=== PATIENT | male | born 1995 | race Caucasian/White ===

== ENCOUNTER 2023-04-17 01:01 | Observation (INO) | payer OTHER, MEDICAID, SELFPAY ==
[2023-04-17] VITALS (10 sets, daily range): BP systolic 108–160; BP diastolic 45–77; PULSE 55–116; RESP 16–18; TEMP 36.3–36.9; O2SAT 95–99; BMI 19.6; BMI 19.3
--- NOTE | 2023-04-17 01:17 | DI.CT.S_ITS ---
PROCEDURE: CT ABDOMEN PELVIS W CON INDICATIONS: RLQ abd pain TECHNIQUE: After the administration of intravenous contrast, axial sections acquired from the lung bases to the pubic symphysis. Coronal and sagittal reformats were performed. For radiation dose reduction, the following was used: automated exposure control, adjustment of mA and/or kV according to patient size. COMPARISON: None. FINDINGS: Image quality: Excellent. Lung bases: Unremarkable. Heart: No significant findings. ABDOMEN: Liver: Unremarkable. Gallbladder: Unremarkable. Biliary ducts: Unremarkable. Pancreas: Unremarkable. Spleen: Unremarkable. Adrenal Glands: Unremarkable. Kidneys and Ureters: Unremarkable. Stomach and Bowel: Appendix is mildly dilated and fluid-filled measuring up to 8 mm in diameter in the right lower quadrant. No appendicolith is seen. There is mild adjacent periappendiceal fat stranding. No adjacent free fluid or pneumoperitoneum is seen. Small bowel loops and stomach are unremarkable. Peritoneum: No abnormal intraperitoneal fluid. No free air. Ventral Wall: No hernias. Abdominal Nodes: No retroperitoneal or mesenteric adenopathy by size criteria. Vessels: Aorta and inferior vena cava are normal in size. PELVIS: Pelvic Organs: Unremarkable. Bladder: Unremarkable. Pelvic Nodes: No enlarged lymph nodes. Miscellaneous: No hernias are seen. Bones: Unremarkable. IMPRESSION: Acute appendicitis. Findings were discussed with the referring physician by telephone on 04/17/2023 at 2:29 AM. Approved by: Dayton Harris M.D. on 04/17/2023 at 2:29
--- NOTE | 2023-04-17 01:17 | ED_ITS ---
HPI - General Adult General Chief complaint: Abdominal Pain Stated complaint: abd pain Time Seen by Provider: 04/17/23 01:13 Source: patient Mode of arrival: Ambulatory Limitations: no limitations History of Present Illness HPI narrative: Patient is a 27-year-old male who is here for evaluation of approximately 12 hours of right lower quadrant abdominal pain. No fevers. Is having nausea. No urinary symptoms. Is having some diarrhea. No prior abdominal surgeries has not tried anything for symptoms prior to arrival. Related Data Home Medications Medication Instructions Recorded Confirmed bupropion HCl 150 mg 24 hr tablet, 30 mg PO BID 04/17/23 04/17/23 extended release Allergies Allergy/AdvReac Type Severity Reaction Status Date / Time No Known Drug Allergies Allergy Verified 04/17/23 01:14 Review of Systems Constitutional Constitutional: Reports system reviewed and no additional complaints, except as documented Respiratory Respiratory: Reports system reviewed and no additional complaints, except as documented Gastrointestinal Gastrointestinal: Reports system reviewed and no additional complaints, except as documented Genitourinary Genitourinary: Reports system reviewed and no additional complaints, except as documented Integumentary/Breasts Skin/Breast: Reports system reviewed and no additional complaints, except as documented Hematologic/Lymphatic On Anticoagulants: No Patient History Social History Smoking Status: Current every day smoker Smoking Status: Current every day smoker tobacco type: cigarettes and vaping alcohol intake frequency: 0-2 drinks per day Substance Use Type: marijuana Exam Initial Vital Signs Initial Vital Signs: Vital Signs Temperature 97.7 F 04/17/23 01:11 Pulse Rate 80 04/17/23 01:11 Respiratory Rate 16 04/17/23 01:11 Blood Pressure 160/66 H 04/17/23 01:11 Pulse Oximetry 95 04/17/23 01:11 Oxygen Delivery Method Room Air 04/17/23 01:11 Const General: cooperative, comfortable and No ill appearing HENMT Head: normal to inspection and normocephalic Resp Effort & Inspection: normal respiratory effort Auscultation: clear to auscultation bilaterally Cardio Rate: regular rate Rhythm: regular rhythm GI Inspection: normal to inspection and non-distended Palpation: soft and tender (Right lower quadrant) Skin General: no rashes or lesions noted Extrem General: normal to inspection Course Orders Ordered: ED Orders 04/17/23 01:15 Complete Blood Count AUTO DIFF Stat Comprehensive Metabolic Panel Stat Lipase Stat 04/17/23 01:17 CT abdomen pelvis w con Stat 04/17/23 02:33 Consult to General Surgery Stat Hydromorphone HCl (Hydromorphone 0.5 Mg Inj) 0.5 mg IV Q2H PRN PRN Reason: Pain, Severe (7-10) Sodium Chloride (Normal Saline 0.9%) 1,000 mls @ 125 mls/hr IV CONT MARQUES Last Admin: 04/17/23 03:30 Dose: 125 mls/hr Documented By: SHERRELL Ondansetron HCl (Ondansetron 4 Mg/2 Ml Inj) 4 mg IV Q4HR PRN PRN Reason: Nausea And Vomiting Discontinued Medications Sodium Chloride (Normal Saline 0.9%) 1,000 mls @ 1,000 mls/hr IV BOLUS ONE Stop: 04/17/23 02:15 Last Infusion: 04/17/23 02:16 Dose: 0 mls/hr Documented By: Admin: 04/17/23 01:20 Dose: 1,000 mls/hr Documented By: CHARAN Piperacillin Sod/Tazobactam (Sod 4.5 gm/ Sodium Chloride) 100 mls @ 200 mls/hr IV NOW ONE Stop: 04/17/23 02:33 Last Admin: 04/17/23 03:30 Dose: 200 mls/hr Documented By: SHERRELL Ondansetron HCl (Ondansetron 4 Mg/2 Ml Inj) 4 mg IV NOW ONE Stop: 04/17/23 01:15 Last Admin: 04/17/23 01:18 Dose: 4 mg Documented By: Vital Signs Vital signs: Vital Signs - 8 hr 04/17/23 01:11 04/17/23 01:16 04/17/23 01:16 Temperature 97.7 F Pulse Rate 80 116 H Respiratory Rate 16 Blood Pressure 160/66 H 156/75 H Pulse Oximetry 95 96 Oxygen Delivery Method Room Air 04/17/23 01:17 04/17/23 01:30 04/17/23 01:50 Temperature Pulse Rate 92 H Respiratory Rate Blood Pressure 114/67 114/76 Pulse Oximetry 97 Oxygen Delivery Method 04/17/23 01:50 04/17/23 02:00 04/17/23 02:00 Temperature Pulse Rate 76 61 Respiratory Rate Blood Pressure 109/69 Pulse Oximetry 99 99 Oxygen Delivery Method 04/17/23 02:19 04/17/23 02:30 Temperature Pulse Rate 66 Respiratory Rate Blood Pressure 108/70 Pulse Oximetry 99 Oxygen Delivery Method Medical Decision Making Lab Data Lab results reviewed: Yes I reviewed the patient's lab results. 04/17/23 01:15 04/17/23 01:15 Labs: Lab Results 04/17/23 04/17/23 Range/Units 01:15 01:15 WBC 9.8 (4.5-11.0) X10^3/uL RBC 5.72 (4.5-5.9) X10^6/uL Hgb 15.9 (13.5-17.5) g/dL Hct 48.3 (41-53) % MCV 84.5 (80-100) fL MCH 27.8 (26-34) PG MCHC 33.0 (30-36) % RDW 14.7 (11.6-14.8) % Plt Count 231 (150-400) X10^3/uL Neut % (Auto) 73.9 (50-75) % Lymph % (Auto) 13.2 L (25-40) % [place] % (Auto) 7.0 (3-14) % Eos % (Auto) 5.6 H (2-4) % Baso % (Auto) 0.3 (0-2) % Neut # (Auto) 7200 H (0032-9962) /uL Lymph # (Auto) 1300 (8060-0585) /uL [place] # (Auto) 700 (0-900) /uL Eos # (Auto) 600 H (0-450) /uL Baso # (Auto) 0 (0-100) /uL Sodium 139 (137-145) mmol/L Potassium 3.9 (3.4-5.1) mmol/L Chloride 103 (98-107) mmol/L Carbon Dioxide 22 (22-32) mmol/L BUN 13 (9-20) mg/dL Creatinine 0.94 (0.66-1.25) mg/dL Estimated GFR > 60 (>60) mL/min BUN/Creatinine Ratio 13.8 (6-22) Glucose 108 H (70-100) mg/dL Calcium 10.0 (8.4-10.2) mg/dL Total Bilirubin 1.3 (0.2-1.3) mg/dL AST 29 (17-59) IU/L ALT 25 (<50) IU/L Alkaline Phosphatase 91 (38-126) U/L Total Protein 8.7 H (6.3-8.2) g/dL Albumin 5.0 (3.5-5.0) g/dL Globulin 3.7 (1.7-4.1) g/dL Albumin/Globulin Ratio 1.4 (1.0-2.8) Lipase 57 (23-300) U/L Urine Dip Bedside Urine Glucose Negative Bedside Urine Bilirubin - Negative Bedside Urine Ketone ++ 40 Urine Specific [place] 1.025 Bedside Urine Occult Blood - Negative Bedside Urine pH 6.0 Bedside Urine Protein - Negative Bedside Urine Urobilinogen - Negative Bedside Urine Nitrite - Negative Bedside Urine Leukocytes - Negative Esterase Point of care testing: Urine Dip Bedside Urine Glucose Negative Bedside Urine Bilirubin - Negative Bedside Urine Ketone ++ 40 Urine Specific [place] 1.025 Bedside Urine Occult Blood - Negative Bedside Urine pH 6.0 Bedside Urine Protein - Negative Bedside Urine Urobilinogen - Negative Bedside Urine Nitrite - Negative Bedside Urine Leukocytes - Negative Esterase Imaging Data CT scan - abdomen/pelvis: Radiologist's Impression: PROCEDURE:? CT ABDOMEN PELVIS W CON ? INDICATIONS:? RLQ abd pain ? TECHNIQUE:? After the administration of intravenous contrast, axial sections acquired from the lung bases to the pubic symphysis.? Coronal and sagittal reformats were performed.? For radiation dose reduction, the following was used:? automated exposure control, adjustment of mA and/or kV according to patient size.? ? COMPARISON:? None. ? FINDINGS:? Image quality:? Excellent.? ? Lung bases:? Unremarkable. Heart:? No significant findings. ? ABDOMEN: Liver:? Unremarkable.? ? Gallbladder:? Unremarkable. Biliary ducts:? Unremarkable.? ? Pancreas:? Unremarkable.? ? Spleen:? Unremarkable.? ? Adrenal Glands:? Unremarkable.? ? Kidneys and Ureters:? Unremarkable.? ? ? Stomach and Bowel:? Appendix is mildly dilated and fluid-filled measuring up to 8 mm in diameter in the right lower quadrant.? No appendicolith is seen.? There is mild adjacent periappendiceal fat stranding.? No adjacent free fluid or pneumoperitoneum is seen.? Small bowel loops and stomach are unremarkable. Peritoneum:? No abnormal intraperitoneal fluid.? No free air.? ? Ventral Wall: ? No hernias.? Abdominal Nodes:? No retroperitoneal or mesenteric adenopathy by size criteria.? Vessels:? Aorta and inferior vena cava are normal in size.? ? PELVIS: Pelvic Organs:? Unremarkable.? ? Bladder:? Unremarkable.? ? Pelvic Nodes: No enlarged lymph nodes.? Miscellaneous: No hernias are seen. ? ? ? Bones:? Unremarkable.? IMPRESSION:? Acute appendicitis. ? Findings were discussed with the referring physician by telephone on 04/17/2023 at 2:29 AM. [facility] Narrative Medical decision making narrative: Patient does not have leukocytosis. CT scan is consistent with acute appendicitis. This does correspond to the location of his discomfort. I did discuss the case with Dr. Pike on-call for General surgery. We will admit for further evaluation and treatment. Discussed the need for admission with the patient. He expressed understanding and agreement. Discharge Plan Departure Patient Disposition: Admitted As Inpatient Clinical Impression: Acute appendicitis Admit Date/Time: 04/17/23 02:42 Admit Provider: Amara Pike
[2023-04-17] MEDS: ONDANSETRON 4 MG/2 ML INJ IV (01:18)
[2023-04-17] MEDS: SODIUM CHLORIDE 0.9% 1,000 ML 1000 ML IV (01:20)
[2023-04-17 01:27] LABS: Add Manual Diff / Slide Review NO; Basophils Absolute Auto 0 /uL (0-100); Basophils Percent Auto 0.3 % (0-2); Eosinophils Absolute Auto 600 /uL (0-450); Eosinophils Percent Auto 5.6 % (2-4); Hematocrit 48.3 % (41-53); Hemoglobin 15.9 g/dL (13.5-17.5); Lymphocytes Absolute Auto 1300 /uL (1100-4500); Lymphocytes Percent Auto 13.2 % (25-40); Mean Corpuscular Hemoglobin 27.8 PG (26-34); Mean Corpuscular Volume 84.5 fL (80-100); Monocytes Absolute Auto 700 /uL (0-900); Neutrophils Absolute Auto 7200 /uL (1500-7000); Neutrophils Percent Auto 73.9 % (50-75); Platelet Count 231 X10^3/uL (150-400); Red Blood Cell Count 5.72 X10^6/uL (4.5-5.9); Red Cell Distribution Width 14.7 % (11.6-14.8); White Blood Cell Count 9.8 X10^3/uL (4.5-11.0)
[2023-04-17 01:42] LABS: Alanine Aminotransferase 25 IU/L (<50); Albumin Globulin Ratio 1.4 (1.0-2.8); Alkaline Phosphatase 91 U/L (38-126); Aspartate Aminotransferase 29 IU/L (17-59); BUN Creatinine Ratio 13.8 (6-22); Bilirubin Total 1.3 mg/dL (0.2-1.3); Blood Urea Nitrogen 13 mg/dL (9-20); Carbon Dioxide 22 mmol/L (22-32); Chloride 103 mmol/L (98-107); Estimated Glomerular Filt Rate > 60 mL/min (>60); Globulin 3.7 g/dL (1.7-4.1); Glucose 108 mg/dL (70-100); HEMOLYSIS 25 (0-50); Lipase 57 U/L (23-300); Potassium 3.9 mmol/L (3.4-5.1); Sodium 139 mmol/L (137-145); Total Protein 8.7 g/dL (6.3-8.2)
[2023-04-17] MEDS: SODIUM CHLORIDE 0.9% 1,000 ML 125 ML IV (03:30)
[2023-04-17] MEDS: PIPERACILLIN/TAZO 4.5 GM in SODIUM CHLORIDE 0.9% 100 ML IV (03:30)
[2023-04-17] MEDS: HYDROMORPHONE 0.5 MG INJ IV (04:30)
--- NOTE | 2023-04-17 04:45 | PC.NURSE ---
Addendum entered by Abhay Aguirre R.N. 04/17/23 04:48: pt verbalizes understanding of plan of care. Original Note: Pt arrived to unit at 0330 via wheelchair. ambulated to bed steady on feet. oriented to room, bed and remote. AxO3. States started a new job 2 weeks ago, will be missing a deal scheduled for today. updated on plan of care. pt has many questions about surgery and timing of being in the hospital, let pt know the dr will be in later this morning to answer all questions he has.
[2023-04-17] MEDS: PIPERACILLIN/TAZO 3.375 GM in SODIUM CHLORIDE 0.9% 100 ML IV (07:53)
[2023-04-17] MEDS: GABAPENTIN 300 MG CAPSULE PO (08:06)
[2023-04-17] MEDS: CELECOXIB 200 MG CAPSULE PO (08:06)
--- NOTE | 2023-04-17 08:41 | CM.DANOTE ---
DCP Assessment Note: Patient is a 27yo male here for acute appendicitis. PCP None. Patient denied list of PCPs in area. Payer [facility] and Medicaid FIRE LOSS PREVENTION ENGINEER reviewed EMR. FIRE LOSS PREVENTION ENGINEER entered room and introduced self and role. Patient was resting in bed and appeared A/Ox4. Patient lives alone in [place] with his dog. Emergency contact is his father Brandt Corbin ([phone]). Patient is active/independent/drives at baseline. Patient is a cars salesman. Patient is eager to have his surgery and leave because his dog is home alone, trying to find a friend to care for him. Patient denied list of PCPs in area to establish primary care. Patient appeared frustrated that his surgery was not scheduled yet. FIRE LOSS PREVENTION ENGINEER asked nursing staff/HOG HANDLER if scheduled, they reported it was not. FIRE LOSS PREVENTION ENGINEER reported this to patient. Patient denied need for other resources at this time. Plan: surgery later today. Patient likely to d/c home after. Patient reports he has transportation figured out. CM team will continue to follow. ROSE MARIE Richardson Discharge Planning/Care Management CM Discharge Assessment Start: 04/17/23 08:40 Freq: Status: Active Protocol: Document 04/17/23 08:40 (Rec: 04/17/23 08:41 [id number]) Discharge Planning Assessment Assigned Parimutuel Cashier ROSE MARIE Wong DPOA/Assigned Designee Name Brandt Corbin (father) Contact Information [phone] Advance Directives? No History Provided By Patient,Medical Record Prior Living Arrangements House Household Members none Type of transporation used prior to Drives own vehicle admit Independent with ADL's Yes Is patient alert and oriented? Yes Discharge Plan Home Transportation Arrangement self/friend Whiteboard Updated in Patient Room with Yes name and ext. # of Parimutuel Cashier Review Status In Process Next Review Type Continued Stay Review
--- NOTE | 2023-04-17 09:16 | PM.HP.1 ---
History of Present Illness History of Present Illness Date Patient Seen: 04/17/23 Time Patient Seen: 09:16 Chief complaint: abd pain Narrative: New onset of abdominal pain yesterday localizing to RLQ, sharp in nature. No previous episodes. CT scan that i reviewed showed early appendicitis w/o fecal lith. He feels better today. [facility] Social History household members: none Smoking Status: Current every day smoker alcohol intake: current Meds Home Medications and Allergies Home Medications Medication Instructions Recorded Confirmed Type bupropion HCl 150 mg 24 hr tablet, 30 mg PO BID 04/17/23 04/17/23 History extended release Allergies Allergy/AdvReac Type Severity Reaction Status Date / Time No Known Drug Allergies Allergy Verified 04/17/23 01:14 Review of Systems Review of Systems ROS: Yes All systems reviewed with the patient and are negative except as otherwise documented Exam Vital Signs (past 8 hours): - 04/17/23 01:17 04/17/23 01:30 04/17/23 01:50 Temperature Pulse Rate 92 H Respiratory Rate Blood Pressure 114/67 114/76 Pulse Oximetry 97 Oxygen Flow Rate 04/17/23 01:50 04/17/23 02:00 04/17/23 02:00 Temperature Pulse Rate 76 61 Respiratory Rate Blood Pressure 109/69 Pulse Oximetry 99 99 Oxygen Flow Rate 04/17/23 02:19 04/17/23 02:30 04/17/23 03:34 Temperature 98.5 F Pulse Rate 66 79 Respiratory Rate 18 Blood Pressure 108/70 135/77 Pulse Oximetry 99 98 Oxygen Flow Rate 0 04/17/23 08:00 Temperature 97.4 F L Pulse Rate 55 L Respiratory Rate 16 Blood Pressure 108/45 L Pulse Oximetry 97 Oxygen Flow Rate Oxygen Delivery Method Room Air Oxygen Flow Rate 0 Const General: cooperative, healthy appearing and comfortable Nutritional Appearance: thin HENMT Head: normocephalic and atraumatic Ears: hearing grossly normal bilaterally Eyes General: appearance normal, both eyes and all related structures Sclera: sclerae normal Neck Neck: trachea midline Chest Chest: normal inspection of the chest Resp Effort & Inspection: normal respiratory effort and able to speak in complete sentences Cardio Rate: bradycardic Rhythm: regular rhythm GI Palpation: soft Other: RLQ mild tenderness to palpation. sits bolt upright in bed to engage me. Skin General: elasticity normal and turgor normal Neuro General: patient alert, patient awake and patient oriented x3 Cognition: normal cognition Extrem General: normal to inspection Psych Mental Status: mental status grossly normal Judgment: judgment good Objective Labs 04/17/23 01:15 04/17/23 01:15 Labs: Laboratory Results - last 24 hr 04/17/23 04/17/23 01:15 01:15 WBC 9.8 RBC 5.72 Hgb 15.9 Hct 48.3 MCV 84.5 MCH 27.8 MCHC 33.0 RDW 14.7 Plt Count 231 Neut % (Auto) 73.9 Lymph % (Auto) 13.2 L [place] % (Auto) 7.0 Eos % (Auto) 5.6 H Baso % (Auto) 0.3 Neut # (Auto) 7200 H Lymph # (Auto) 1300 [place] # (Auto) 700 Eos # (Auto) 600 H Baso # (Auto) 0 Sodium 139 Potassium 3.9 Chloride 103 Carbon Dioxide 22 BUN 13 Creatinine 0.94 Estimated GFR > 60 BUN/Creatinine Ratio 13.8 Glucose 108 H Calcium 10.0 Total Bilirubin 1.3 AST 29 ALT 25 Alkaline Phosphatase 91 Total Protein 8.7 H Albumin 5.0 Globulin 3.7 Albumin/Globulin Ratio 1.4 Lipase 57 Assessment & Plan Assessment & Plan narrative: acute appendicitis. responding to antibiotics treatment. Patient when given the options chooses antibiotics only. Plan: recheck CBC, switch to Augmentin with potential of discharge later today on 5 days Augmentin. Time Spent With Patient Time with patient: 30 to 49 minutes with 50% spent counseling/coordinating care
[2023-04-17] MEDS: AMOXICILLIN/CLAV 875/125 MG 1 TAB PO (10:11)
[2023-04-17] MEDS: buPROPion XL 150 MG TAB PO (10:11)
[2023-04-17 10:39] LABS: Add Manual Diff / Slide Review NO; Basophils Absolute Auto 100 /uL (0-100); Basophils Percent Auto 0.8 % (0-2); Eosinophils Absolute Auto 500 /uL (0-450); Eosinophils Percent Auto 7.1 % (2-4); Hematocrit 38.9 % (41-53); Hemoglobin 12.8 g/dL (13.5-17.5); Lymphocytes Absolute Auto 1600 /uL (1100-4500); Lymphocytes Percent Auto 23.1 % (25-40); Mean Corpuscular Hemoglobin 27.9 PG (26-34); Mean Corpuscular Volume 84.4 fL (80-100); Monocytes Absolute Auto 600 /uL (0-900); Neutrophils Absolute Auto 4200 /uL (1500-7000); Platelet Count 170 X10^3/uL (150-400); Red Blood Cell Count 4.61 X10^6/uL (4.5-5.9); Red Cell Distribution Width 14.4 % (11.6-14.8)
--- NOTE | 2023-04-17 11:54 | PM.DS.1 ---
History of Present Illness History of Present Illness Date Patient Seen: 04/17/23 Chief complaint: abd pain Narrative: New onset of abdominal pain yesterday localizing to RLQ, sharp in nature. No previous episodes. CT scan that i reviewed showed early appendicitis w/o fecal lith. He feels better today. Discharge Providers Provider Date of admission: 04/17/23 02:42 Discharge Date: 04/17/23 Consults: 04/17/23 02:33 Consult to General Surgery Stat Comment: Consulting Provider: Amara Pike Reason for consultation: Acute appendicitis Has provider been notified: Yes Discharge provider: Amara Pike MD Summary Hospital Course Discharge Diagnosis: hemoperitoneum hemorrhagic shock torsed left ovary Hospital Course: s/p open exlap with removal of left ovary Had 6 total units PRBC Pain control difficult due to sensitivity to narcotics Hypertension due to pain, will be on 10 days lizinopril Continued urologic issues to be addessed by Dr. Traore. New urinary retention Status at Discharge Cognitive/behavioral status at discharge: at baseline, oriented Functional status at discharge: independent ambulation Overall status at discharge: patient is progressing back to baseline Time Spent with Patient Time spent: Less than 30 minutes Exam Vital Signs (past 8 hours): - 04/17/23 08:00 04/17/23 07:40 Temperature 97.4 F L Pulse Rate 55 L Respiratory Rate 16 Blood Pressure 108/45 L Pulse Oximetry 97 Oxygen Delivery Method Room Air Oxygen Delivery Method Room Air Oxygen Flow Rate 0 Narrative Exam Narrative: tenderness in lower incision, no complications. Will discharge with cheung Objective Labs 04/17/23 10:25 04/17/23 01:15 Labs: Laboratory Results - last 24 hr 04/17/23 04/17/23 04/17/23 01:15 01:15 10:25 WBC 9.8 7.0 RBC 5.72 4.61 Hgb 15.9 12.8 L Hct 48.3 38.9 L MCV 84.5 84.4 MCH 27.8 27.9 MCHC 33.0 33.0 RDW 14.7 14.4 Plt Count 231 170 Neut % (Auto) 73.9 60.0 Lymph % (Auto) 13.2 L 23.1 L [place] % (Auto) 7.0 9.0 Eos % (Auto) 5.6 H 7.1 H Baso % (Auto) 0.3 0.8 Neut # (Auto) 7200 H 4200 Lymph # (Auto) 1300 1600 [place] # (Auto) 700 600 Eos # (Auto) 600 H 500 H Baso # (Auto) 0 100 Sodium 139 Potassium 3.9 Chloride 103 Carbon Dioxide 22 BUN 13 Creatinine 0.94 Estimated GFR > 60 BUN/Creatinine Ratio 13.8 Glucose 108 H Calcium 10.0 Total Bilirubin 1.3 AST 29 ALT 25 Alkaline Phosphatase 91 Total Protein 8.7 H Albumin 5.0 Globulin 3.7 Albumin/Globulin Ratio 1.4 Lipase 57 PFSH Social History household members: none Smoking Status: Current every day smoker alcohol intake: current Discharge Assessment & Plan Assessment and Plan Assessment: S/p Xlap with removal of left ovary anemia will continue to be treated with vitamen Fentanyl patch and po dilaudid for pain limited Lisinopril (10 days) for reactive HTN Plan of Treatment: discharge home 1 week post op check to review path as well Clinic appointment with [place] upon discharge. Discharge Plan Discharge Plan Patient Disposition: Home Provider Discharge Comment: No formal follow up needed. Complete antibiotics as directed. Return to ED if symptoms recur or worsen. Discharge orders & Medications Prescriptions: New celecoxib [Celebrex] 200 mg Capsule 200 mg PO BID Qty: 20 0RF amoxicillin-pot clavulanate 875-125 mg Tablet 1 tab PO BID Qty: 10 0RF Continued bupropion HCl 150 mg tablet extended release 24 hr 30 mg PO BID Rx Instructions: unsure if correct, pt states this is what he takes Diet/Activity/Treatments Diet: Diet as Tolerated Skin/Wound/Dressing Care Report to your healthcare provider any signs of infection, such as:: chills, fever and increased pain Visit Report/Discharge Packet Instructions: DI for Appendicitis -- Adult, Antibiotics May Be Better Than Appendectomies in Some Cases Stand Alone Forms: Patient Portal/API Discharge Data Attending Provider: Amara Pike Admit Date/Time: 04/17/23 02:42
--- NOTE | 2023-04-22 12:47 | PM.DS.1 ---
History of Present Illness History of Present Illness Date Patient Seen: 04/17/23 Date of Onset of Symptoms: 04/16/23 Chief complaint: abd pain Narrative: New onset of abdominal pain yesterday localizing to RLQ, sharp in nature. No previous episodes. CT scan that i reviewed showed early appendicitis w/o fecal lith. He feels better today. Discharge Providers Provider Date of admission: 04/17/23 02:42 Discharge Date: 04/17/23 Consults: 04/17/23 02:33 Consult to General Surgery Stat Comment: Consulting Provider: Amara Pike Reason for consultation: Acute appendicitis Has provider been notified: Yes Discharge provider: Amara Pike MD Summary Hospital Course Discharge Diagnosis: acute appendicitis Hospital Course: Medical management of appendicitis(antibiotics). Status at Discharge Cognitive/behavioral status at discharge: at baseline, oriented Functional status at discharge: independent ambulation Overall status at discharge: patient is progressing back to baseline Time Spent with Patient Time spent: Greater than 30 minutes Exam Vital Signs (past 8 hours): Oxygen Delivery Method Room Air Oxygen Flow Rate 0 Narrative Exam Narrative: Improved since morning exam. Tolerating po, minimal RLQ tenderness Objective Labs 04/17/23 10:25 04/17/23 01:15 PFSH Social History household members: none Smoking Status: Current every day smoker alcohol intake: current Discharge Assessment & Plan Assessment and Plan Assessment: Acute appendicitis managed with antibiotics only Discharge home with follow up prn Plan of Treatment: discharge home Discharge Plan Discharge Plan Patient Disposition: Home Provider Discharge Comment: No formal follow up needed. Complete antibiotics as directed. Return to ED if symptoms recur or worsen. Discharge orders & Medications Prescriptions: New celecoxib [Celebrex] 200 mg Capsule 200 mg PO BID Qty: 20 0RF amoxicillin-pot clavulanate 875-125 mg Tablet 1 tab PO BID Qty: 10 0RF Continued bupropion HCl 150 mg tablet extended release 24 hr 30 mg PO BID Rx Instructions: unsure if correct, pt states this is what he takes Diet/Activity/Treatments Diet: Diet as Tolerated Skin/Wound/Dressing Care Report to your healthcare provider any signs of infection, such as:: chills, fever and increased pain Visit Report/Discharge Packet Instructions: DI for Appendicitis -- Adult, Antibiotics May Be Better Than Appendectomies in Some Cases Stand Alone Forms: Patient Portal/API Discharge Data Attending Provider: Amara Pike Admit Date/Time: 04/17/23 02:42 Discharges patient from system. Discharge Date/Time: 04/17/23 12:55
--- NOTE | 2023-04-23 13:12 | PC.NURSE ---
Late Entry: piperacillin infusion initiated 04/17 at 0330 complete at 0401. Piperacillin infusion initiated 04/17 at 0753 complete at 1154.
== END 2023-04-17 12:55 | disposition home or self-care (01) ==
LOC: ED 02:33 → AC 07:43
PROVIDERS: Admitting Provider Surgery; Emergency Provider Emergency Medicine; Referring Provider Emergency Medicine; Visit Provider Surgery
DX: K35.80 Unspecified acute appendicitis (principal); F17.210 Nicotine dependence, cigarettes, uncomplicated
CPT/HCPCS: 36415; 74177; 80053; 81003; 83690; 85025; 96361; 96365; 96366; 96375; 99234; 99284; G0378; J1170; J2405; J2543; Q9967